=== PATIENT | female | born 1985 | race Asian ===

== ENCOUNTER 2020-02-16 15:10 | Inpatient (IN) | payer OTHER ==
[2020-02-16 15:54] LABS: EOS % 1.1 % (0-4.5); HEMATOCRIT 32.1 % (32.4-45.2); HEMOGLOBIN 10.5 GM/dL (10.7-15.3); LYMPH % 29.4 % (8-40); MCH 28.5 pg (25.7-33.7); MCHC 32.7 g/dl (32.0-36.0); MEAN PLT VOLUME 9.6 fl (7.5-11.1); NEUT % 59.5 % (42.8-82.8); PLATELET COUNT 360 K/MM3 (134-434); RBC 3.69 M/mm3 (3.60-5.2); RDW 18.6 % (11.6-15.6); WHITE BLOOD COUNT 12.4 K/mm3 (4.0-10.0)
[2020-02-16 15:56] LABS: RETICULOCYTES 3.1 % (0.5-1.5)
[2020-02-16] MEDS ORDERED: ELECTROLYTE-148 SOLN 1,000 ML IV SCH (16:00)
[2020-02-16 16:10] LABS: INR 0.89 (0.83-1.09); PROTHROMBIN TIME (PATIENT) 10.5 SEC (9.7-13.0)
[2020-02-16 16:12] LABS: ACTIVATED PTT 28.1 SECONDS (25.2-36.5)
[2020-02-16 16:28] LABS: GAMMA GLUTAMYL TRANSPEPTIDASE 15 U/L (5-85); SGOT/AST 91 U/L (15-37); SGPT/ALT 195 U/L (13-61)
[2020-02-16 16:29] LABS: BLOOD UREA NITROGEN 10.4 mg/dL (7-18); CALCIUM 9.6 mg/dL (8.5-10.1); CREATININE 0.6 mg/dL (0.55-1.3); POTASSIUM 4.3 mmol/L (3.5-5.1); URIC ACID 4.7 mg/dL (2.6-7.2)
[2020-02-16 16:38] VITALS: BMI 43.3
[2020-02-16] MEDS ORDERED: CITRIC ACID/SODIUM CITRATE 30 ML UNIT-DOSE CUP PO ONE ×2 (17:00→17:29)
--- NOTE | 2020-02-16 17:33 | HP ---
Past Medical History - Primary Care Physician PCP:: Sofía Goldstein - Admission Chief Complaint: 34 yo EDC 02/22/2020 EGA 39 weeks with Elevated BP in the office, CORTEZ, Breech presentation History of Present Illness: 34 yo @ 39 weeks - from IVF, breech presentation, Morbid obesitypresented to office with elevated BP, CORTEZ and c/o pelvic pressure and UC. Due to malpresentation decision made to deliver the pt. History Source: Patient Limitations to Obtaining History: No Limitations - Past Medical History Reproductive: Yes: Other (Infertility) ...: 1 ...Para: 0 ...Term: 0 ...: 0 ...Spon : 0 ...Induced : 0 ...Living Children: 0 ...Multiple Gestation: 0 ...LMP: 05/18/19 ... Weeks Gestation by Dates: 39.1 ...EDC by Dates: 02/22/20 ...EDC by Sono: 02/22/20 Endocrine: Yes: Other (Prolactinoma LEEP) - Past Surgical History Hx Myomectomy: No Hx Transabdominal Cerclage: No - Smoking History Smoking history: Never smoked Have you smoked in the past 12 months: No - Alcohol/Substance Use Hx Alcohol Use: No History of Substance Use: reports: None - Social History Usual Living Arrangement: Yes: With Spouse Occupation: RN History of Recent Travel: No Home Medications - Allergies Allergies/Adverse Reactions: Allergies Allergy/AdvReac Type Severity Reaction Status Date / Time No Known Allergies Allergy Verified 02/16/20 16:07 - Home Medications Home Medications: Ambulatory Orders Ferrous Sulfate [Iron] 325 mg PO DAILY 02/16/20 Pnv No.95/Ferrous Fum/Folic AC [ Formula] 1 each PO DAILY 02/16/20 Family Medical History Family Hx Congestive Heart Failure: Father Review of Systems - Review of Systems Constitutional: reports: Other (CORTEZ) Eyes: reports: No Symptoms HENT: reports: No Symptoms Neck: reports: No Symptoms Cardiovascular: reports: No Symptoms Respiratory: reports: No Symptoms Gastrointestinal: reports: No Symptoms Genitourinary: reports: Pain Breasts: reports: No Symptoms Reported Musculoskeletal: reports: No Symptoms Integumentary: reports: No Symptoms Neurological: reports: No Symptoms Endocrine: reports: No Symptoms Hematology/Lymphatic: reports: No Symptoms Psychiatric: reports: No Symptoms Physical Exam - Maternity Vital Signs: Vital Signs Temperature 98.0 F 02/16/20 16:00 Pulse Rate 99 H 02/16/20 16:00 Respiratory Rate 18 02/16/20 16:00 Blood Pressure 135/66 02/16/20 16:00 O2 Sat by Pulse Oximetry (%) 100 02/16/20 16:00 Constitutional: Yes: Well Nourished, Anxious Eyes: Yes: WNL HENT: Yes: WNL Neck: Yes: WNL Cardiovascular: Yes: WNL Lungs: Clear to auscultation Breast(s): Yes: WNL - Abdominal Exam/OB Fundal Height: 41 Number of Fetuses: Single Presentation: Breech Contractions: Yes Regularity: Irritability Intensity: Mild Monitor Mode: External Heart Rate Location: [facility] Category: I Accelerations: Uniform Decelerations: None - Vaginal Exam/OB Vaginal Bleeding: No Amniotic Membrane Status: Intact Presentation: Mina Breech Station: -1 - Physical Exam Musculoskeletal: Yes: WNL Extremities: Yes: WNL Edema: Yes Edema: LUE: 3+, RUE: 3+, LLE: 3+, RLE: 3+ Integumentary: Yes: WNL Deep Tendon Reflex Grade: Normal +2 Psychiatric: Yes: WNL - Labs Lab Results: CBC, BMP 02/16/20 15:30 02/16/20 15:30 Hemorrhage Risk Assessment - Risk Factors Medium Risk Factors: Yes: Obesity (BMI >40) Risk Score: 2 Risk Level: High Risk Problem List - Problems (1) resulting from in vitro fertilization Code(s): O09.819 - SUPRVSN OF PREG RSLT FROM ASSISTED REPRODCTV TECH, UNSP TRI (2) Breech presentation Code(s): O32.1XX0 - MATERNAL CARE FOR BREECH PRESENTATION, UNSP (3) 39 weeks gestation of Code(s): Z3A.39 - 39 WEEKS GESTATION OF (4) PIH ( induced hypertension) Problems reviewed: Yes Code(s): O13.9 - GESTATIONAL HTN W/O SIGNIFICANT PROTEINURIA, UNSP TRIMESTER (5) Morbid obesity with BMI of 40.0-44.9, adult Code(s): E66.01 - MORBID (SEVERE) OBESITY DUE TO EXCESS CALORIES; Z68.41 - BODY MASS INDEX (BMI) 40.0-44.9, ADULT (6) GBS bacteriuria Code(s): R82.71 - BACTERIURIA Assessment/Plan Admit to [facility] labs Observation Cesarian delivery
[2020-02-16] MEDS ORDERED: OXYTOCIN 20 UNITS in 0.9% NS 20 UNIT/1,000 ML INFUS.BAG IV ONE ×3 (17:50→22:55)
[2020-02-16] MEDS ORDERED: ACETAMINOPHEN 325 MG TABLET (FP) PO PRN (17:52)
[2020-02-16] MEDS ORDERED: ceFAZolin SODIUM 1 GM VIAL ONE (17:57)
[2020-02-16] MEDS ORDERED: KETOROLAC TROMETHAMINE 30 MG/1 ML VIAL ONE (17:57)
[2020-02-16] MEDS ORDERED: morphine SULFATE/PF 0.5 MG/ML (2cc Syringe - QUVA) ONE (17:59)
[2020-02-16] MEDS ORDERED: PROPOFOL 20 ML ONE (18:58)
[2020-02-16 19:15] LABS: CORD BASE EXCESS -3.7 mmol/L (0-2); CORD HCO3 21.9 mmHg (20-29); CORD PCO2 41.8 mmHg (30-78); CORD pH 7.338 (7.14-7.44)
[2020-02-16 19:29] LABS: CORD PCO2 19.7 mmHg (30-78); CORD pH 7.342 (7.14-7.44)
[2020-02-16 19:30] LABS: CORD BASE EXCESS -13.8 mmol/L (0-2); CORD HCO3 10.4 mmHg (20-29)
[2020-02-16] MEDS ORDERED: ACETAMINOPHEN 1000 MG/100 ML VIAL (NON FORMULARY) IVPB PRN (19:37)
--- NOTE | 2020-02-16 20:31 | OP ---
Operative Note - Note: Operative Date: 02/16/20 Pre-Operative Diagnosis: 34 yo @ 39 weeks Breech presentation. PIH. Morbid obesity Operation: Cesarian section via Pfannenstiel Incision Findings: Uterus, ovaries, tunes wnl Baby boy born 9/9 Delayed cord clamp Blood gases and cord collected Placenta manually with difficulty - posterior adherent placenta Pitocin, hemabete given Uterus soft Decision for B Lund made and B lund stich performed; uterus contracted well Placenta and membranes sent to pathology Post-Operative Diagnosis: Other (Adherent posterior placenta) Surgeon: Sofía Goldstein Booking Prizer: Wilmer Zapata Anesthesiologist/ROAST MASTER: Donaldo Diehl Anesthesia: Spinal Specimens Removed: placenta and membranes Estimated Blood Loss (mls): 1,100 Fluid Volume Replaced (mls): 2,000 Operative Report Dictated: No
[2020-02-17] MEDS ORDERED: oxyCODONE HCL 5 MG TABLET PO PRN (00:01)
[2020-02-17] MEDS ORDERED: ONDANSETRON 4 MG/2 ML VIAL ONE (01:29)
[2020-02-17] MEDS: CEFAZOLIN 1 GM/D5W 1 GM/50 ML BAG IVPB SCH ×3 (01:42→17:52)
[2020-02-17] MEDS: ONDANSETRON 4 MG/2 ML VIAL IVPUSH PRN ×2 (01:44→06:43)
[2020-02-17 08:05] LABS: BASO % 0.2 % (0-2.0); EOS % 0.6 % (0-4.5); HEMATOCRIT 27.8 % (32.4-45.2); HEMOGLOBIN 8.9 GM/dL (10.7-15.3); LYMPH % 15.7 % (8-40); MCH 28.1 pg (25.7-33.7); MEAN CELL VOLUME 87.8 fl (80-96); MEAN PLT VOLUME 9.5 fl (7.5-11.1); MONO % 9.2 % (3.8-10.2); NEUT % 74.3 % (42.8-82.8); PLATELET COUNT 338 K/MM3 (134-434); RBC 3.16 M/mm3 (3.60-5.2); RDW 18.5 % (11.6-15.6); WHITE BLOOD COUNT 17.6 K/mm3 (4.0-10.0)
[2020-02-17] MEDS: ENOXAPARIN NA (PORCINE) 40 MG/0.4 ML DISP.SYRIN SQ SCH (09:07)
[2020-02-17] MEDS: OXYTOCIN 20 UNITS in 0.9% NS 20 UNIT/1,000 ML INFUS.BAG IV SCH ×3 (09:07→21:43)
--- NOTE | 2020-02-17 10:04 | PN ---
Progress Note (short form) - Note Progress Note: Anesthesia Post op/pain Pt seen and examined S:Alert and awake, comfortable O: Vital Signs Temperature 98.1 F 02/17/20 09:57 Pulse Rate 108 H 02/17/20 09:57 Respiratory Rate 02/17/20 09:57 Blood Pressure 127/85 02/17/20 09:57 O2 Sat by Pulse Oximetry (%) 96 02/17/20 09:57 CBC, BMP 02/17/20 07:40 02/16/20 15:30 A/P Current Active Problems 39 weeks gestation of (Acute) Breech presentation (Acute) GBS bacteriuria (Acute) Morbid obesity with BMI of 40.0-44.9, adult (Acute) PIH ( induced hypertension) (Acute) resulting from in vitro fertilization (Acute) s/p c section Doing well post op Continue current care Donaldo Sanchez M.D.
[2020-02-17 13:02] LABS: HEMATOCRIT 25.7 % (32.4-45.2); HEMOGLOBIN 8.3 GM/dL (10.7-15.3); MCH 27.9 pg (25.7-33.7); MCHC 32.1 g/dl (32.0-36.0); MEAN CELL VOLUME 86.8 fl (80-96); MEAN PLT VOLUME 9.1 fl (7.5-11.1); PLATELET COUNT 328 K/MM3 (134-434); RBC 2.96 M/mm3 (3.60-5.2); RDW 18.7 % (11.6-15.6); WHITE BLOOD COUNT 17.3 K/mm3 (4.0-10.0)
[2020-02-17 13:26] LABS: ALBUMIN 2.1 g/dl (3.4-5.0); BILIRUBIN,DIRECT 0.2 mg/dL (0.0-0.2); BILIRUBIN,TOTAL 0.4 mg/dL (0.2-1); BLOOD UREA NITROGEN 8.6 mg/dL (7-18); CALCIUM 7.9 mg/dL (8.5-10.1); CREATININE 0.5 mg/dL (0.55-1.3); POTASSIUM 3.8 mmol/L (3.5-5.1); TOT PROT 5.5 g/dl (6.4-8.2)
[2020-02-17] MEDS: SIMETHICONE 80 MG TAB.CHEW (FP) PO PRN ×2 (15:12→23:08)
--- NOTE | 2020-02-17 15:53 | PN ---
Post Progress Note - Subjective Subjective: Happy, scarred to walk c/o incision pain Post Day: 1 Type of Delivery: Primary C/S Vital Signs: Vital Signs Temperature 97.8 F 02/17/20 14:00 Pulse Rate 88 02/17/20 14:00 Respiratory Rate 02/17/20 14:00 Blood Pressure 126/89 02/17/20 14:00 O2 Sat by Pulse Oximetry (%) 96 02/17/20 14:00 Breast Exam: Yes: Soft Uterus: Yes: Fundus Firm, Fundus @ umbilicus Incision: Yes: Dressing dry and intact Abdomen/GI: Yes: Abdomen soft, Tender Lochia: Yes: Rubra Lochia, amount: Moderate Extremities: Yes: Calves non-tender - Labs Labs: CBC WBC 17.3 K/mm3 (4.0-10.0) H 02/17/20 12:51 RBC 2.96 M/mm3 (3.60-5.2) L 02/17/20 12:51 Hgb 8.3 GM/dL (10.7-15.3) L 02/17/20 12:51 Hct 25.7 % (32.4-45.2) L 02/17/20 12:51 MCV 86.8 fl (80-96) 02/17/20 12:51 MCH 27.9 pg (25.7-33.7) 02/17/20 12:51 MCHC 32.1 g/dl (32.0-36.0) 02/17/20 12:51 RDW 18.7 % (11.6-15.6) H 02/17/20 12:51 Plt Count 328 K/MM3 (134-434) 02/17/20 12:51 MPV 9.1 fl (7.5-11.1) 02/17/20 12:51 Absolute Neuts (auto) 13.1 K/mm3 (1.5-8.0) H 02/17/20 07:40 Neutrophils % 74.3 % (42.8-82.8) D 02/17/20 07:40 Lymphocytes % 15.7 % (8-40) D 02/17/20 07:40 Monocytes % 9.2 % (3.8-10.2) 02/17/20 07:40 Eosinophils % 0.6 % (0-4.5) 02/17/20 07:40 Basophils % 0.2 % (0-2.0) 02/17/20 07:40 Nucleated RBC % 0 % (0-0) 02/17/20 07:40 Retic Count 3.10 % (0.5-1.5) H 02/16/20 15:30 Problem List - Problems (1) resulting from in vitro fertilization Code(s): O09.819 - SUPRVSN OF PREG RSLT FROM ASSISTED REPRODCTV TECH, UNSP TRI (2) Breech presentation Code(s): O32.1XX0 - MATERNAL CARE FOR BREECH PRESENTATION, UNSP (3) 39 weeks gestation of Code(s): Z3A.39 - 39 WEEKS GESTATION OF (4) PIH ( induced hypertension) Code(s): O13.9 - GESTATIONAL HTN W/O SIGNIFICANT PROTEINURIA, UNSP TRIMESTER (5) Morbid obesity with BMI of 40.0-44.9, adult Code(s): E66.01 - MORBID (SEVERE) OBESITY DUE TO EXCESS CALORIES; Z68.41 - BODY MASS INDEX (BMI) 40.0-44.9, ADULT (6) GBS bacteriuria Code(s): R82.71 - BACTERIURIA Assessment/Plan CBC stable urine output 40 ml/hr concentrated urine bolus 1000ml lr may ambulate
[2020-02-17] MEDS ORDERED: SODIUM CHLORIDE 1,000 ML IV SCH (16:00)
[2020-02-17] MEDS ORDERED: BISACODYL 10 MG SUPP.RECT RC PRN (19:30)
[2020-02-17] MEDS: ELECTROLYTE-148 SOLN 1,000 ML IV SCH (21:42)
[2020-02-17] MEDS: ACETAMINOPHEN 325 MG TABLET (FP) PO PRN (23:07)
[2020-02-17] MEDS: SENNOSIDES/DOCUSATE COMBO (SENNA PLUS) TABLET (UD) PO PRN (23:08)
[2020-02-17] MEDS: IBUPROFEN 600 MG TABLET (FP) PO PRN (23:09)
[2020-02-18] MEDS: ACETAMINOPHEN 325 MG TABLET (FP) PO PRN ×5 (03:11→23:33)
[2020-02-18] MEDS: oxyCODONE HCL 5 MG TABLET PO PRN ×5 (03:12→23:34)
[2020-02-18] MEDS: IBUPROFEN 600 MG TABLET (FP) PO PRN ×5 (03:12→23:33)
[2020-02-18] MEDS: SIMETHICONE 80 MG TAB.CHEW (FP) PO PRN ×5 (03:13→23:34)
[2020-02-18] MEDS ORDERED: FUROSEMIDE 40 MG TABLET (FP) PO ONE (09:49)
--- NOTE | 2020-02-18 09:49 | PN ---
Post Progress Note Type of Delivery: Primary C/S Vital Signs: Vital Signs Temperature 97.5 F L 02/18/20 09:14 Pulse Rate 80 02/18/20 09:14 Respiratory Rate 18 02/18/20 09:14 Blood Pressure 122/79 02/18/20 09:14 O2 Sat by Pulse Oximetry (%) 98 02/17/20 18:00 Breast Exam: Yes: Soft, Engorged Uterus: Yes: Fundus Firm, Fundus below umbilicus Incision: Yes: Sutures intact Abdomen/GI: Yes: Abdomen soft Lochia: Yes: Rubra Lochia, amount: Small Extremities: Yes: Edema Activity: Ambulating - Labs Labs: CBC WBC 17.3 K/mm3 (4.0-10.0) H 02/17/20 12:51 RBC 2.96 M/mm3 (3.60-5.2) L 02/17/20 12:51 Hgb 8.3 GM/dL (10.7-15.3) L 02/17/20 12:51 Hct 25.7 % (32.4-45.2) L 02/17/20 12:51 MCV 86.8 fl (80-96) 02/17/20 12:51 MCH 27.9 pg (25.7-33.7) 02/17/20 12:51 MCHC 32.1 g/dl (32.0-36.0) 02/17/20 12:51 RDW 18.7 % (11.6-15.6) H 02/17/20 12:51 Plt Count 328 K/MM3 (134-434) 02/17/20 12:51 MPV 9.1 fl (7.5-11.1) 02/17/20 12:51 Absolute Neuts (auto) 13.1 K/mm3 (1.5-8.0) H 02/17/20 07:40 Neutrophils % 74.3 % (42.8-82.8) D 02/17/20 07:40 Lymphocytes % 15.7 % (8-40) D 02/17/20 07:40 Monocytes % 9.2 % (3.8-10.2) 02/17/20 07:40 Eosinophils % 0.6 % (0-4.5) 02/17/20 07:40 Basophils % 0.2 % (0-2.0) 02/17/20 07:40 Nucleated RBC % 0 % (0-0) 02/17/20 07:40 Retic Count 3.10 % (0.5-1.5) H 02/16/20 15:30 Haptoglobin 129 mg/dL (33-278) 02/16/20 15:30 Problem List - Problems (1) resulting from in vitro fertilization Problems reviewed: Yes Code(s): O09.819 - SUPRVSN OF PREG RSLT FROM ASSISTED REPRODCTV TECH, UNSP TRI (2) Breech presentation Problems reviewed: Yes Code(s): O32.1XX0 - MATERNAL CARE FOR BREECH PRESENTATION, UNSP (3) 39 weeks gestation of Problems reviewed: Yes Code(s): Z3A.39 - 39 WEEKS GESTATION OF (4) PIH ( induced hypertension) Problems reviewed: Yes Code(s): O13.9 - GESTATIONAL HTN W/O SIGNIFICANT PROTEINURIA, UNSP TRIMESTER (5) Morbid obesity with BMI of 40.0-44.9, adult Problems reviewed: Yes Code(s): E66.01 - MORBID (SEVERE) OBESITY DUE TO EXCESS CALORIES; Z68.41 - BODY MASS INDEX (BMI) 40.0-44.9, ADULT (6) GBS bacteriuria Problems reviewed: Yes Code(s): R82.71 - BACTERIURIA Assessment/Plan ambulate Joe valenzuela may go to home tomorrow after cbc, cmp
[2020-02-18] MEDS ORDERED: WITCH HAZEL 50% (TUCKS) 40 PAD/JAR PAD TP PRN (09:50)
[2020-02-18] MEDS ORDERED: DIPHTH,PERTUSS(ACELL),TET 0.5 ML DISP.SYRIN IM ONE (10:00)
[2020-02-18] MEDS: ENOXAPARIN NA (PORCINE) 40 MG/0.4 ML DISP.SYRIN SQ SCH (10:37)
[2020-02-18] MEDS: HYDROCORTISONE 2.5% TOPICAL CREAM 30 GM TUBE RC SCH (12:17)
--- NOTE | 2020-02-18 17:51 | PATH ---
Surgical Pathology Report Patient Name: DENISE MENESES [facility]. Rec. #: [id number] /Age/Gender: 1985 (Age: 34) / F Account: [id number] Location: [facility] OBS/INTERVENTIONAL PHYSICIAN Taken: 02/16/2020 Received: 02/17/2020 Reported: 02/18/2020 Physicians: Sofía Goldstein M.D. Specimen(s) Received PLACENTA Clinical History , 39.1 weeks Final Diagnosis PLACENTA, SECTION: 635 G THIRD TRIMESTER PLACENTA WITH A HYPERCOILED TRIVASCULAR UMBILICAL CORD AND UNREMARKABLE PLACENTAL MEMBRANES. Electronically Signed Carmencita Candelario M.D. Gross Description The specimen is received fresh labeled placenta and is a 635 gram, 19 x 16 x 2 cm, markedly fragmented placenta, attached accessory lobe (11 x 10 x 1.5 cm), membranes, and portion of umbilical cord. The attached membranes are winston, opaque, and insert marginally. The attached umbilical cord measures 2 cm in length, averages 1 cm in diameter, and inserts eccentrically, 4 cm. to the nearest margin. A separate portion of hypercoiled umbilical cord (12 coils/ 10 cm), measuring 22 cm in length is received in the same container. No true knots or strictures are identified. Cut surface of the umbilical cord reveals 3 vessels. The surface is jaquez-blue with minimal fibrin deposition and appropriate caliber vessels. The maternal surface is markedly fragmented and show focal defects. Sectioning reveals red-brown, spongy parenchyma. No lesions are identified. Rounder Hand sections are submitted in 4 cassettes as follows: 1- membrane rolls and umbilical cord; 2-3- full thickness sections of placenta, 4- accessory lobe.
[2020-02-18] MEDS: OXYTOCIN 20 UNITS in 0.9% NS 20 UNIT/1,000 ML INFUS.BAG IV SCH (19:36)
[2020-02-18] MEDS: SENNOSIDES/DOCUSATE COMBO (SENNA PLUS) TABLET (UD) PO PRN (19:39)
[2020-02-19] MEDS: ACETAMINOPHEN 325 MG TABLET (FP) PO PRN ×2 (03:39→08:16)
[2020-02-19] MEDS: IBUPROFEN 600 MG TABLET (FP) PO PRN (03:40)
[2020-02-19] MEDS: oxyCODONE HCL 5 MG TABLET PO PRN ×2 (03:40→08:17)
[2020-02-19] MEDS: SIMETHICONE 80 MG TAB.CHEW (FP) PO PRN (08:16)
[2020-02-19 08:39] LABS: BASO % 0.8 % (0-2.0); EOS % 3.2 % (0-4.5); HEMATOCRIT 25.1 % (32.4-45.2); HEMOGLOBIN 8.1 GM/dL (10.7-15.3); LYMPH % 25.1 % (8-40); MCH 28.1 pg (25.7-33.7); MCHC 32.2 g/dl (32.0-36.0); MEAN CELL VOLUME 87.3 fl (80-96); MEAN PLT VOLUME 9.2 fl (7.5-11.1); MONO % 13.5 % (3.8-10.2); NEUT % 57.4 % (42.8-82.8); PLATELET COUNT 405 K/MM3 (134-434); RBC 2.88 M/mm3 (3.60-5.2)
[2020-02-19 09:01] LABS: ALBUMIN 2.1 g/dl (3.4-5.0); BILIRUBIN,TOTAL 0.3 mg/dL (0.2-1); BLOOD UREA NITROGEN 7.6 mg/dL (7-18); CALCIUM 8.7 mg/dL (8.5-10.1); CREATININE 0.5 mg/dL (0.55-1.3); POTASSIUM 4.2 mmol/L (3.5-5.1); TOT PROT 5.7 g/dl (6.4-8.2)
[2020-02-19] MEDS: ENOXAPARIN NA (PORCINE) 40 MG/0.4 ML DISP.SYRIN SQ SCH (10:33)
[2020-02-19] MEDS: HYDROCORTISONE 2.5% TOPICAL CREAM 30 GM TUBE RC SCH (10:33)
[2020-02-19 14:35] VITALS: BP 136/73; PULSE 99; TEMP 98.2
--- NOTE | 2020-02-19 15:14 | OP ---
DATE OF OPERATION: 02/16/2020 PREOPERATIVE DIAGNOSIS: A 34-year-old 1, para 0 at 39 weeks, breech presentation, -induced hypertension, morbid obesity. POSTOPERATIVE DIAGNOSIS: A 34-year-old 1, para 0 at 39 weeks, breech presentation, -induced hypertension, morbid obesity, pending pathology. PROCEDURE: Primary section via Pfannenstiel incision. FINDINGS: Uterus, ovaries, tubes within normal limits, baby boy, 9, 9. Delayed cord clamp. Cord gases and blood collected. Placenta manually with difficulty, posterior aberrant placenta. B-Lund stitch performed. The uterus contracted well. SURGEON: Wallace Tian MD METAL TEMPERER: Wilmer Zapata MD ANESTHESIA: Dr. Fulton , spinal. SPECIMEN REMOVED: Placenta and membranes. ESTIMATED BLOOD LOSS: 1100. FLUIDS REPLACED: Lactated Ringer's 2000 mL. URINE OUTPUT AT THE END OF THE PROCEDURE: Clear urine 150. PROCEDURE: The patient was taken to the operating room where spinal anesthesia was found to be adequate. She was then prepped and draped in the usual sterile fashion in dorsal spine position with a leftward tilt. A Pfannenstiel skin incision was made with a scalpel and carried through to the underlying layers of fascia with the Bovie. The fascia was incised in the midline and the incision extended laterally with Simeon scissors. The superior and inferior fascial incision was grasped with Mars clamps, elevated and the underlying rectus muscles dissected off bluntly. The rectus muscles were then in the midline and the peritoneum identified, tented up and entered sharply with Metzenbaum scissors. The peritoneal incision was then extended superiorly and inferiorly with good visualization of the bladder. The bladder blade was then inserted and the vesicouterine peritoneum identified, grasped with pickups and entered sharply with Metzenbaum scissors. This incision was then extended laterally and the bladder flap created digitally. The bladder blade was removed. The bladder blade was reinserted and the lower uterine segment incised in transverse fashion with a scalpel. The uterine incision was extended laterally with bandage scissors. The bladder blade was removed and the infant was delivered as a breech atraumatically. The nose and mouth were suctioned, the cord clamped and cut. The was handed off to the waiting insurance sales supervisor. Cord gases and blood sent. The placenta was removed manually. It was difficult to remove the placenta. The uterus did not contract well. It was soft. Decision for a B-Lund stitch was made and B-Lund stitch performed with uterus augustus very well. The uterine incision was repaired with 1 chromic in a running stitch and locked fashion. Second layer of the same suture was used to obtain excellent hemostasis. Bladder flap was repaired with 2-0 chromic in a running stitch and the uterus returned to the abdomen. The gutters were clear of all clots and the peritoneum closed with 2-0 chromic. The fascia was reapproximated with 0 Vicryl in a running fashion and the skin was closed with alfredo. The patient tolerated the procedure well. Sponge, lap, needle counts correct x2. The patient was taken to the recovery room in stable condition. WALLACE TIAN MD [id number]
--- NOTE | 2020-02-26 14:50 | EKG ---
Test Reason : Blood Pressure : / mmHG Vent. Rate : 086 BPM Atrial Rate : 086 BPM P-R Int : 142 ms QRS Dur : 090 ms QT Int : 374 ms P-R-T Axes : 049 075 004 degrees QTc Int : 447 ms NORMAL SINUS RHYTHM WITH SINUS ARRHYTHMIA NORMAL ECG NO PREVIOUS ECGS AVAILABLE Confirmed by LILIANA GARCÍA MD ([id number]) on 02/26/2020 2:50:32 PM Referred By: Confirmed By:LILIANA GARCÍA MD
== END 2020-02-19 15:05 | disposition home or self-care (01) | DRG 788 ==
LOC: JLDR 15:10 → J3W 02-17
PROVIDERS: ADMIT Obstetrics & Gynecology; ATTEND Obstetrics & Gynecology
PROC: 10D00Z1 Extraction of Products of Conception, Low, Open Approach (ICD-10-PCS; principal; 2020-02-16)
DX: O32.1XX0 Maternal care for breech presentation, not applicable or unspecified (principal); O99.214 Obesity complicating childbirth; E66.01 Morbid (severe) obesity due to excess calories; O75.89 Other specified complications of labor and delivery; O13.4 Gestational [pregnancy-induced] hypertension without significant proteinuria, complicating childbirth; Z3A.39 39 weeks gestation of pregnancy; Z37.0 Single live birth; R82.71 Bacteriuria
CPT/HCPCS: 36415; 36600; 80048; 80053; 80076; 82803; 82977; 83010; 84450; 84460; 84550; 85025; 85027; 85032; 85044; 85610; 85730; 86780; 86850; 86900; 86901; 87389; 88307-TC; 90715; 93005; 93010; J0131